=== PATIENT | female | born 1930 ===

== ENCOUNTER 2017-03-31 14:30 | Outpatient (RCR) | payer OTHER ==
[~2017-03-31 14:30] MED LIST: ASPIRIN81 MG ORAL; COUMADIN1 MG ORAL; CRESTOR10 M1 ORAL; LISINOPRIL20 MG ORAL; LOPRESSOR25 M1 ORAL; METFORMIN HCL500 M3 ORAL; VITAMIN D1000 UNI1 ORAL; [UNRECOGNIZED DRUG - REMARK]
== END 2017-04-27 | disposition home or self-care (01) ==
LOC: PTY 14:30
DX: Z86.73 Personal history of transient ischemic attack (TIA), and cerebral infarction without residual deficits (principal)

== ENCOUNTER 2017-04-25 15:15 | Outpatient (RCR) | payer OTHER | END 2017-04-27 | disposition home or self-care (01) | LOC: PTY 15:15 | DX: I69.998 Other sequelae following unspecified cerebrovascular disease (principal); M54.9 Dorsalgia, unspecified ==

== ENCOUNTER 2017-05-02 15:15 | Outpatient (RCR) | payer OTHER | END 2017-05-28 | disposition home or self-care (01) | LOC: PTY 15:15 | DX: I69.898 Other sequelae of other cerebrovascular disease (principal); M54.2 Cervicalgia; M54.9 Dorsalgia, unspecified ==